=== PATIENT | female | born 1965 | race Caucasian/White ===

== ENCOUNTER 2017-06-16 13:27 | Day surgery (SDC) | payer MEDICAID ==
[2017-06-13 12:03] LABS: BASOPHILS % (AUTO) 0.3 % (0-1); EOSINOPHILS # (AUTO) 0.2 X10'3 (0-0.9); EOSINOPHILS % (AUTO) 1.6 % (0-6); LYMPHOCYTES # (AUTO) 2.9 X10'3 (1.1-4.8); LYMPHOCYTES % (AUTO) 22.7 % (21-51); MEAN CORPUSCULAR HEMOGLOBIN 28.5 PG (27.0-31.0); MEAN CORPUSCULAR HGB CONC 33.3 % (33.0-36.5); MEAN CORPUSCULAR VOLUME 85.7 FL (78-98); MEAN PLATELET VOLUME 6.3 FL (7.4-10.4); MONOCYTES # (AUTO) 0.7 X10'3 (0-0.9); MONOCYTES % (AUTO) 5.5 % (2-12); NEUTROPHILS # (AUTO) 8.8 X10'3 (1.8-7.7); NEUTROPHILS % (AUTO) 69.9 % (42-75); PRE OP HEMATOCRIT 35.3 % (35.0-45.0); PRE OP HEMOGLOBIN 11.8 g/dL (12.0-16.0); PRE OP PLATELET COUNT 540 X10'3 (140-440); RED BLOOD COUNT 4.12 X10'6 (4.20-5.60); RED CELL DISTRIBUTION WIDTH 14.9 % (11.5-14.5)
[2017-06-13 12:17] LABS: ALBUMIN 3.4 G/DL (3.4-5.0); ALBUMIN/GLOBULIN RATIO 0.9 (1.1-1.5); ALKALINE PHOSPHATASE 70 IU/L (46-116); BLOOD UREA NITROGEN 17 MG/DL (7-18); BUN/CREATININE RATIO 18.9 (6.6-38.0); CALCIUM 9.4 MG/DL (8.5-10.1); CHLORIDE 106 MMOL/L (99-107); PRE OP ALT 22 U/L (30-65); PRE OP ANION GAP 10 (8-16); PRE OP AST 13 U/L (10-37); PRE OP BILIRUB, TOTAL 0.4 MG/DL (0.0-1.0); PRE OP GLUCOSE 98 MG/DL (70-104); PRE OP POTASSIUM 3.4 MMOL/L (3.4-5.1); PRE OP SODIUM 143 MMOL/L (135-145); TOTAL CARBON DIOXIDE 27.4 MMOL/L (24-32); TOTAL PROTEIN 7.2 G/DL (6.4-8.2); eGFR 66 ML/MIN
[~2017-06-16] VITALS: Ht 165.1 cm; Wt 106.1 kg
[~2017-06-16 13:27] MED LIST: IBUP-1984 PO; LEVO150T8 PO; PANT-47 PO; PRED5TAB PO; [UNRECOGNIZED DRUG - CODE] PO; famotidine 20mg tablet PO ONE; ringers solution, lacted 1,000 ML IV SCH
== END 2017-06-16 14:30 | disposition home or self-care (01) ==
LOC: PAS 13:27 → EDSTATUS 15:45
PROVIDERS: ATTEND Otolaryngology
DX: J38.01 Paralysis of vocal cords and larynx, unilateral (principal); Z53.9 Procedure and treatment not carried out, unspecified reason; Z91.041 Radiographic dye allergy status; Z91.048 Other nonmedicinal substance allergy status
CPT/HCPCS: 36415; 80053; 85025; 93005; J7120